=== PATIENT | female | born 1990 | race American Indian/Alaskan Native ===

== ENCOUNTER → 2018-12-07 | Day surgery (SDC) | payer OTHER ==
--- NOTE | 2018-12-11 18:19 | PATH ---
Surgical Pathology Report Patient Name: ALICIA JOHNSON [facility]. Rec. #: [id number] /Age/Gender: 1990 (Age: 28) / F Account: [id number] Location: RADIOLOGY [facility] Taken: 12/07/2018 Received: 12/07/2018 Reported: 12/12/2018 Physicians: Lia Sow M.D. Specimen(s) Received RIGHT BREAST Clinical History Right breast, 9:00, palpable 2 cm mass Final Diagnosis BREAST, RIGHT, 9:00, ULTRASOUND GUIDED CORE BIOPSY: BENIGN BREAST TISSUE WITH NODULAR ADENOSIS, SEE COMMENT. Comment: The stroma show cellular areas comprised of spindle cells which are positive for SMM-HC, SMA, vimentin, CD34, and BCL2; while negative for AE1/3, ER, OK, p63 and CD10. S100 shows weak staining. 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 Suggest clinical and radiologic correlation. Immunohistochemical stains performed and interpreted at [facility]: AE1/3, SMM-HC, p63, ER, OK, S100. Immunohistochemical stains performed at [place], [place] ([id number]) and interpreted at [facility]: SMA, vimentin, BLC2, CD10, CD34 Positive and negative controls (internal if applicable) show appropriate results. Electronically Signed Anne Anderson M.D. Gross Description Received in formalin labeled "right breast, 9:00" are 3 morel-yellow, cylindrical portions of fibroadipose tissue ranging from 1-1.2 cm in length and averaging 0.2 cm diameter. The specimens are submitted in toto in one cassette. Time to formalin fixation: <1 minute Total formalin fixation time: 6-7 hours. MLSZ/12/07/2018 sanml/12/07/2018
== END | disposition home or self-care (01) ==
LOC: JRADUS-SUR 11:18
PROVIDERS: ATTEND Surgery
PROC: 0HBT3ZX Excision of Right Breast, Percutaneous Approach, Diagnostic (ICD-10-PCS; principal; 2018-12-07)
DX: D24.1 Benign neoplasm of right breast (principal)
CPT/HCPCS: 19083; 87899; 88305-TC; 88341-TC; 88342-TC; A4648

== ENCOUNTER 2019-01-11 06:10 | Day surgery (SDC) | payer OTHER ==
[2019-01-10 12:49] VITALS: BMI 23.2
[2019-01-11] MEDS ORDERED: LIDOCAINE 1%-EPI 1:100,000 30 ML MDV IJ ONE (07:18)
[2019-01-11] MEDS ORDERED: EPHEDRINE SULFATE/0.9% NACL/PF 50 MG/10 ML SYRINGE NR ONE (07:25)
[2019-01-11] MEDS ORDERED: PROPOFOL 20 ML ONE ×3 (07:26→08:45)
[2019-01-11] MEDS ORDERED: ROCURONIUM BROMIDE 50 MG/5 ML SYRINGE ONE (07:26)
[2019-01-11] MEDS ORDERED: MIDAZOLAM HCL 2 MG/2 ML SINGLE DOSE VIAL ONE (07:27)
--- NOTE | 2019-01-11 08:21 | HP ---
Admitting History and Physical - Admission Chief Complaint: right breast mass History of Present Illness: 28 y.o. female with slowly growing mass of the right breast. US CNB showed fibroadenoma. History Source: Patient - Past Medical History ...LMP: 12/20/17 ...LMP Comment: REGULAR ...: No Additional Past Medical History: breast mass - Past Surgical History Past Surgical History: Yes: None - Smoking History Smoking history: Never smoked Have you smoked in the past 12 months: No - Alcohol/Substance Use Hx Alcohol Use: No - Social History ADL: Independent History of Recent Travel: No Home Medications - Allergies Allergies/Adverse Reactions: Allergies Allergy/AdvReac Type Severity Reaction Status Date / Time No Known Allergies Allergy Verified 01/11/19 06:43 - Home Medications Home Medications: Ambulatory Orders NK [No Known Home Medication] 03/24/16 Review of Systems - Review of Systems Constitutional: reports: No Symptoms Neck: reports: No Symptoms Cardiovascular: reports: No Symptoms Respiratory: reports: No Symptoms Gastrointestinal: reports: No Symptoms Breasts: reports: Lumps, Other (right breast) Physical Examination Vital Signs: Vital Signs Temperature Pulse Rate 73 01/11/19 06:41 Respiratory Rate 16 01/11/19 06:41 Blood Pressure 114/70 01/11/19 06:41 O2 Sat by Pulse Oximetry (%) 100 01/11/19 06:41
[2019-01-11] MEDS ORDERED: DEXAMETHASONE SOD PHOSPHATE 4 MG/1 ML VIAL ONE ×2 (08:43→09:09)
[2019-01-11] MEDS ORDERED: LIDOCAINE HCL/PF 2% SDV 5ML VIAL ONE (08:43)
[2019-01-11] MEDS ORDERED: DESFLURANE GAS 240 ML BOTTLE IH ONE (08:43)
[2019-01-11] MEDS ORDERED: LIDOCAINE HCL 2% JELLY (5 ML/TUBE) ONE (08:48)
[2019-01-11] MEDS ORDERED: BENZOIN TINCTURE SWABSTICK TP ONE (09:10)
--- NOTE | 2019-01-11 09:35 | OP ---
Operative Note - Note: Operative Date: 01/11/19 Pre-Operative Diagnosis: right breast mass Operation: right breast mass excision biopsy Findings: 3 x 2 cm lobulated mass Post-Operative Diagnosis: Same as Pre-op Surgeon: Mario Alberto Valdes Anesthesia: General (LMA) Specimens Removed: breast mass Estimated Blood Loss (mls): 2 Operative Report Dictated: Yes
[2019-01-11 10:50] VITALS: TEMP 97.9
[2019-01-11 11:30] VITALS: BP 114/68; PULSE 79
--- NOTE | 2019-01-14 15:51 | OP ---
DATE OF OPERATION: 01/11/2019 PROCEDURE: Excision, biopsy, right breast mass. PREOPERATIVE DIAGNOSIS: Right breast mass. POSTOPERATIVE DIAGNOSIS: Right breast mass. SURGEON: Mario Alberto Valdes MD ANESTHESIA: General by laryngeal mask airway. FINDINGS OF PROCEDURE: This is a 28-year-old female who presents with a slowly growing breast mass which serial ultrasounds revealed a more than 2-cm lobulated mass. Preoperative ultrasound-guided core needle biopsy revealed fibroadenoma. Due to the enlarging size of the mass, patient was advised excision of the mass, and consent was obtained after discussing the risks, benefits, and alternatives to the procedure. DESCRIPTION OF PROCEDURE: Patient was brought to the operating room and placed in supine position with her right arm abducted 90 degrees. General anesthesia by laryngeal mask airway was administered. The operative site was prepped and draped in the usual sterile fashion. Using lidocaine 1% with epinephrine, local anesthesia was administered to the proposed incision site. A 2-cm curvilinear incision over the mass at 9 o'clock position, 8 cm away from the nipple was made using scalpel blade No. 15, with dissection carried down to the subcutaneous tissue. Further dissection using Bovie cautery combined with Alicea scissors was done till the lobulated mass was completely excised from its attachment to the breast tissue. The mass was lobulated, fibrous, and about 3 x 2 cm in size. Afterwards the defect was closed by apposing the normal breast tissue with 2 [id number] Vicryl 3-0 suture. The wound was closed with interrupted Vicryl 3-0 suture for the dermis and continuous Biosyn 4-0 suture or the subcuticular layer. The wound closure was reinforced with Steri-Strips, then covered with sterile dressing. Patient was successfully extubated and transferred to the postanesthesia care unit in satisfactory condition. ESTIMATED BLOOD LOSS: About 2 mL. WOUND CLASS: Clean. Lia [id number] MTDD
--- NOTE | 2019-01-15 17:16 | PATH ---
Surgical Pathology Report Patient Name: ALICIA JOHNSON [facility]. Rec. #: [id number] /Age/Gender: 1990 (Age: 28) / F Account: [id number] Location: [facility] SURGICAL Taken: 01/11/2019 Received: 01/11/2019 Reported: 01/15/2019 Physicians: Mario Alberto Valdes M.D. Specimen(s) Received RIGHT BREAST MASS Clinical History Right breast mass Final Diagnosis RIGHT BREAST MASS, EXCISION: BREAST TISSUE WITH BENIGN PHYLLODES TUMOR. MARGIN IS POSITIVE FOR THE TUMOR. Comment: Circumscribed fibroepithelial lesion with pushing border and mild to moderate stromal cellularity. Focal stromal expansion is noted. Mitotic figures count ~ 4 /10 HPF. No cytologic atypia identified. Adjacent peripheral breast tissue shows focal adenosis. The tumor is present at the inked margins. No definitive prior biopsy site present in this material. Intradepartmental case reviewed with concordance on diagnosis. Prior biopsy material [id number] has been reviewed. Electronically Signed Magdaleno Prasad M.D. Addendum Reported: 01/17/2019 Addendum Diagnosis This case was discussed with Dr. Valdes on January 17, 2019. Magdaleno Prasad M.D. Gross Description Received in formalin labeled "right breast mass," is a 2.7 x 2.5 x 1.8 cm morel, irregular, unoriented, rubbery mass. There is no skin or nipple present. The specimen is inked black and serially sectioned. Sectioning reveals diffuse dense, white, rubbery parenchyma. The specimen is entirely and sequentially submitted in 6 cassettes. Total formalin fixation time: Approximately 38 hours DL/01/11/2019 saudi/01/11/2019
== END 2019-01-11 11:45 | disposition home or self-care (01) ==
LOC: JASU-SURG 06:10
PROVIDERS: ATTEND Surgery
PROC: 0HBT0ZX Excision of Right Breast, Open Approach, Diagnostic (ICD-10-PCS; principal; 2019-01-11 08:00)
DX: D24.1 Benign neoplasm of right breast (principal); N63.10 Unspecified lump in the right breast, unspecified quadrant
CPT/HCPCS: 84703; 88307-TC; 94760

== ENCOUNTER 2019-03-01 08:17 | Day surgery (SDC) | payer OTHER ==
[2019-02-28 17:54] VITALS: BMI 23.2
[2019-03-01] MEDS ORDERED: ONDANSETRON 4 MG/2 ML VIAL IVPUSH PRN (10:20)
[2019-03-01] MEDS ORDERED: oxyCODONE HCL 5 MG TABLET PO PRN (10:20)
[2019-03-01] MEDS ORDERED: PROMETHAZINE HCL 25 MG/1 ML VIAL IVPB PRN (10:20)
[2019-03-01] MEDS ORDERED: PROPOFOL 20 ML ONE (10:23)
[2019-03-01] MEDS ORDERED: MIDAZOLAM HCL 2 MG/2 ML SINGLE DOSE VIAL ONE (10:23)
[2019-03-01] MEDS ORDERED: LACTATED RINGERS SOLUTION 1,000 ML IV SCH (10:30)
[2019-03-01] MEDS ORDERED: LIDOCAINE HCL 1%, 10 MG/ML (20ML VIAL) ONE (10:34)
[2019-03-01] MEDS ORDERED: BUPIVACAINE HCL/PF 0.5% (5 MG/ML) 30 ML VIAL IJ ONE ×4 (10:41→11:58)
--- NOTE | 2019-03-01 10:49 | HP ---
Admitting History and Physical - Admission Chief Complaint: right breast phylloides tumor History of Present Illness: 28 y.o. female with > 2 years hx of right breast mass. CNB was reported as fibroadenoma Patient underwent excision biopsy this time reported as phylloides tumor with positive margin Patient was advised wide re-excision to prevent recurrence History Source: Patient Limitations to Obtaining History: No Limitations - Past Medical History ...LMP: 02/12/18 - Past Surgical History Past Surgical History: Yes: None - Smoking History Smoking history: Never smoked Have you smoked in the past 12 months: No - Alcohol/Substance Use Hx Alcohol Use: No - Social History ADL: Independent History of Recent Travel: No Home Medications - Allergies Allergies/Adverse Reactions: Allergies Allergy/AdvReac Type Severity Reaction Status Date / Time No Known Allergies Allergy Verified 03/01/19 09:20 - Home Medications Home Medications: Ambulatory Orders NK [No Known Home Medication] 02/28/19 Review of Systems - Review of Systems Constitutional: reports: No Symptoms Physical Examination Vital Signs: Vital Signs Temperature 98.3 F 03/01/19 09:17 Pulse Rate 78 03/01/19 09:17 Respiratory Rate 20 03/01/19 09:17 Blood Pressure 113/65 03/01/19 09:17 O2 Sat by Pulse Oximetry (%) 95 03/01/19 09:16 Constitutional: Yes: Well Nourished, No Distress HENT: Yes: Normocephalic Neck: Yes: Supple Cardiovascular: Yes: Regular Rate and Rhythm Respiratory: Yes: CTA Bilaterally Gastrointestinal: Yes: Soft Breast(s): Yes: Right (2 cm right breast scar at lateral aspect 9:00 position 5 cm from the nipple) Problem List - Problems (1) Breast mass, right Assessment/Plan: 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
[2019-03-01] MEDS ORDERED: ceFAZolin 2 GRAM PREMIX BAG IVPB ONE (11:02)
[2019-03-01] MEDS ORDERED: BENZOIN TINCTURE SWABSTICK TP ONE (11:57)
--- NOTE | 2019-03-01 13:15 | OP ---
DATE OF OPERATION: 03/01/2019 PROCEDURE: Withdraw re-excision of right breast Phyllodes tumor. 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 POSTOPERATIVE DIAGNOSIS: Right breast Phyllodes tumor with positive margin. SURGEON: Mario Alberto Valdes MD ANESTHESIA: General by laryngeal mask airway. FINDINGS AND PROCEDURE: This is a 28-year-old female who presents with a slowly growing right breast mass over 2 years for which an ultrasound-guided core needle biopsy was reported as a fibroadenoma. Due to the size of the mass, this was more than 2 cm in size. Patient was advised excisional biopsy of the mass. The patient underwent excisional biopsy of the mass 1 month prior. This time the pathology was reported as Phyllodes tumor with positive margin, so the patient was excised wide re-excision of the Phyllodes tumor, and consent was obtained after discussing the risks, benefits, and alternatives of the procedure. Patient was brought to the operating room and placed in supine position with both arms abducted 90 degrees. General endotracheal by laryngeal mask airway was administered. The right breast was prepped and draped in the usual sterile fashion. Using 0.5% Marcaine, local anesthesia was administered to the proposed incision site for postoperative analgesia. The scar was excised, and the wound was lengthened to about 4 cm still in a curvilinear fashion. Afterwards, medial and lateral flaps were made using Bovie cautery, and aggregate size of the breast tissue, a 3 x 3 x 1-cm deep side of breast tissue and the area of the previous biopsy was excised. The other margins of the specimen was sutured for orientation. Mastopexy was done using Vicryl 3-0 suture. The wound was closed with Polysorb 3-0 suture for the dermis and continuous Biosyn 4-0 suture for the subcuticular layer. The wound closure was reinforced with Steri-Strips then covered with pressure dressing. Patient was successfully extubated and transferred to the post anesthesia care unit in satisfactory condition. Estimated blood loss was about 20 mL. Wound class clean. The patient received a gram of Ancef prior to the start of the procedure. Lia [id number]
[2019-03-01 13:48] VITALS: TEMP 98.3
--- NOTE | 2019-03-01 14:30 | OP ---
Operative Note - Note: Operative Date: 03/01/19 Pre-Operative Diagnosis: RIGHT BREAST PHYLLOIDES TUMOR Operation: wide re-excision right breast phylloides tumor Post-Operative Diagnosis: Same as Pre-op Surgeon: Mario Alberto Valdes Anesthesia: General Specimens Removed: breast tissue Estimated Blood Loss (mls): 10 Operative Report Dictated: Yes
[2019-03-01 14:59] VITALS: BP 112/58; PULSE 86
--- NOTE | 2019-03-04 15:47 | PATH ---
Surgical Pathology Report Patient Name: ALICIA JOHNSON [facility]. Rec. #: [id number] /Age/Gender: 1990 (Age: 28) / F Account: [id number] Location: [facility] SURGICAL Taken: 03/01/2019 Received: 03/01/2019 Reported: 03/04/2019 Physicians: Mario Alberto Valdes M.D. Specimen(s) Received A: SKIN RIGHT BREAST B: MARGIN RIGHT BREAST C: RIGHT BREAST TUMOR Clinical History Right breast Phyllodes tumor Final Diagnosis A. SKIN, BREAST, RIGHT, EXCISION: SKIN AND UNDERLYING SUBCUTANEOUS TISSUE WITH CHANGES OF PRIOR BIOPSY. SCANT BENIGN BREAST PARENCHYMA NOTED. B. BREAST, RIGHT, SKIN MARGIN, EXCISION: SKIN AND UNDERLYING SUBCUTANEOUS TISSUE WITH MILD CHRONIC INFLAMMATION. NO PHYLLODES TUMOR IDENTIFIED. C. BREAST TUMOR, RIGHT, EXCISION: BENIGN BREAST PARENCHYMA WITH CHANGES OF PRIOR BIOPSY. NO PHYLLODES TUMOR IDENTIFIED. Electronically Signed Anne Anderson M.D. Gross Description A. Received in formalin labeled "skin right breast," is a 2.5 x 0.5 cm morel, elliptical, unoriented portion of skin excised to depth of 0.9 cm. The epidermal surface is unremarkable. The base is inked blue and the specimen is serially sectioned. Elevator Tender sections are submitted in one cassette. B. Received in formalin labeled "skin margin right breast," is a 3.2 x 0.4 cm morel, elliptical, unoriented portion of morel excised to a depth of 0.8 cm. The epidermal surface is unremarkable. The base is inked blue and the specimen is serially sectioned. The specimen is entirely submitted in 2 cassettes. C. Received in formalin, labeled "right breast tumor," is a 4.0 x 3.3 x 2.3 cm. morel-yellow, irregular, portion of fibroadipose tissue. There is no needle localization wire present. There is a short stitch marking the superior upper margin, a medium stitch marking the medial upper margin, and a long stitch marking the posterior outer margin. There is no skin or nipple present. The specimen is inked as follows: superior and lateral blue; inferior green; medial yellow; anterior red; deep black. The specimen is serially sectioned from lateral to medial. Sectioning reveals diffuse dense, white, firm fibrous tissue. The specimen is entirely and sequentially submitted in 9 cassettes with the lateral margin in cassette 1 and the medial margin in cassette 9. Total formalin fixation time: Approximately 6 hours 03/01/201903/01/2019
== END 2019-03-01 14:45 | disposition home or self-care (01) ==
LOC: JASU-SURG 08:17
PROVIDERS: ATTEND Surgery
PROC: 0JB60ZZ Excision of Chest Subcutaneous Tissue and Fascia, Open Approach (ICD-10-PCS; principal; 2019-03-01 10:00)
DX: D24.1 Benign neoplasm of right breast (principal)
CPT/HCPCS: 84703; 88305-TC; 88307-TC; 94760